=== PATIENT | male | born 1960 | race Two or more races ===

== ENCOUNTER 2023-04-16 09:55 | Inpatient (IN) | payer OTHER ==
[~2023-04-16] VITALS: Ht 177.8 cm; Wt 86.2 kg
== END 2023-04-27 15:09 | disposition home or self-care (01) | DRG 418 ==
LOC: ER 09:55 → MEDJ 19:52
PROVIDERS: Surgery; ADMIT Internal Medicine; ATTEND Internal Medicine
PROC: BF37ZZZ Magnetic Resonance Imaging (MRI) of Pancreas (ICD-10-PCS; 2023-04-16)
PROC: BW40ZZZ Ultrasonography of Abdomen (ICD-10-PCS; 2023-04-16)
PROC: 3E0336Z Introduction of Nutritional Substance into Peripheral Vein, Percutaneous Approach (ICD-10-PCS; 2023-04-17)
PROC: BF13YZZ Fluoroscopy of Gallbladder and Bile Ducts using Other Contrast (ICD-10-PCS; 2023-04-22)
PROC: 0FT44ZZ Resection of Gallbladder, Percutaneous Endoscopic Approach (ICD-10-PCS; principal; 2023-04-22 07:00)
DX: K85.10 Biliary acute pancreatitis without necrosis or infection (principal); K80.12 Calculus of gallbladder with acute and chronic cholecystitis without obstruction; R17 Unspecified jaundice; N17.8 Other acute kidney failure; N39.0 Urinary tract infection, site not specified; L03.311 Cellulitis of abdominal wall; D72.828 Other elevated white blood cell count; E80.6 Other disorders of bilirubin metabolism; K82.8 Other specified diseases of gallbladder; R74.01 Elevation of levels of liver transaminase levels; E11.9 Type 2 diabetes mellitus without complications; I10 Essential (primary) hypertension; Z79.4 Long term (current) use of insulin